=== PATIENT | male | born 1965 | race Caucasian/White ===

== ENCOUNTER → 2017-07-17 | Outpatient (REF) ==
[~2017-07-17] MED LIST: COZAAR100 MG PO
== END ==
LOC: WSOH 11:23
DX: Z00.00 Encounter for general adult medical examination without abnormal findings (principal)

== ENCOUNTER 2020-04-29 07:39 | Day surgery (SDC) | payer BC ==
[~2020-04-29] VITALS: Ht 177.8 cm; Wt 80.0 kg
[2020-04-29 08:00] VITALS: BP 142/82; PULSE 77; TEMP 98.5
[2020-04-29 09:35] VITALS: BP 119/75; PULSE 70; TEMP 97.7
--- NOTE | 2020-04-29 09:35 | NUR ---
Patient brought back to [facility] [place] [facility] via [place]. Placed on monitors, vital signs stable. Denies nausea or pain. States he would like a muffin and coffee. Report recieved from Mayela LEÓN. to be called to pick patient up. Warm blanket provided. Will continue to monitor.
[2020-04-29 09:50] VITALS: BP 130/76; PULSE 68
--- NOTE | 2020-04-29 09:50 | NUR ---
Patient tolerating food and drink without difficulty. States he would like more coffee. Will continue to monitor.
[2020-04-29 10:05] VITALS: BP 120/58; PULSE 82
--- NOTE | 2020-04-29 10:05 | NUR ---
Patient states he feels ready to go home at this time. IV removed, intact. called to come pick patient up. Patient to get dressed at this time. Will continue to monitor.
--- NOTE | 2020-04-29 10:35 | NUR ---
Discharge instructions reviewed with patient, all questions answered. Patient brought down to lobby via wheel chair. met at front door to drive patient home.
== END 2020-04-29 10:35 | disposition home or self-care (01) ==
LOC: SDCO 07:39
DX: Z12.11 Encounter for screening for malignant neoplasm of colon (principal); I10 Essential (primary) hypertension; D64.9 Anemia, unspecified; F10.20 Alcohol dependence, uncomplicated; D72.819 Decreased white blood cell count, unspecified; H90.3 Sensorineural hearing loss, bilateral; F17.220 Nicotine dependence, chewing tobacco, uncomplicated; Z88.8 Allergy status to other drugs, medicaments and biological substances; Z86.010 Personal history of colon polyps
CPT/HCPCS: J2704; J3010; J7120

== ENCOUNTER 2021-08-01 21:06 | Emergency (ER) | payer BC ==
[~2021-08-01] VITALS: Ht 177.8 cm; Wt 86.4 kg
[2021-08-01 21:20] VITALS: TEMP 98.1
[2021-08-01 21:51] LABS: BASO % 0.2 % (0.0-2.0); EOS % 0.2 % (0-4.0); GRAN # 3.4 (1.4-6.5); GRAN % 77.5 % (42.2-75.2); HEMOGLOBIN 13.4 g/dl (13.5-18.0); LYMPH # 0.3 (1.2-3.4); LYMPH % 7.2 % (20.0-51.0); MEAN CELL VOLUME 89 fl (80.0-100.0); MEAN CORPUSCULAR HEMOGLOBIN 32 pg (27.0-31.0); MEAN CORPUSCULAR HGB CONC 36 g/dl (33.0-37.0); MEAN PLATELET VOLUME 8.8 fl (7.4-10.4); MONO # 0.6 (0.1-0.6); PLATELET COUNT 155 K/mm3 (130-400); RED BLOOD COUNT 4.14 M/mm3 (4.20-5.60); REDCELL DISTRIBUTION WIDTH-CV 12.3 % (11.5-14.5)
[2021-08-01 21:59] LABS: INR 1.1 (0.8-3.0); PROTHROMBIN TIME 11.9 SECONDS (9.7-12.8)
[2021-08-01 22:03] LABS: ALANINE AMINOTRANSFERASE 27 U/L (4-49); ALKALINE PHOSPHATASE 61 U/L (50-136); ANION GAP 8 mmol/L (7-16); AST,SGOT 38 U/L (15-37); BILIRUBIN,TOTAL 0.6 mg/dL (0.0-1.0); BLOOD UREA NITROGEN 4 mg/dL (9-20); CALCIUM 8.3 mg/dL (8.4-10.2); CARBON DIOXIDE 22 mmol/L (22-30); CREATININE, serum 0.44 (0.66-1.25); GLUCOSE 93 mg/dL (74-106); POTASSIUM 3.9 mmol/L (3.4-5.0); TOTAL PROTEIN 6.3 gm/dL (6.4-8.2)
[2021-08-01 22:06] LABS: ALCOHOL(ethanol),MEDICAL < 10 mg/dL; CHLORIDE 85 mmol/L (98-107); SALICYLATE < 1.0 mg/dL; SODIUM 116 mmol/L (137-145)
[2021-08-01 22:20] LABS: TROPONIN-I < 0.012 ng/mL (0.000-0.035)
[2021-08-01 23:27] LABS: COLLECTION METHOD CLEAN CATCH
[2021-08-01 23:33] LABS: PH 7 (5-8); SQUAMOUS EPITHELIAL 0-2 /hpf; URINE APPEARANCE Clear; URINE BACTERIA None Seen /hpf; URINE BILIRUBIN Negative (NEGATIVE); URINE BLOOD Negative (NEGATIVE); URINE COLOR Straw; URINE GLUCOSE Negative (NEGATIVE); URINE KETONE 1+ (NEGATIVE); URINE LEUKOCYTE ESTERASE Negative (NEGATIVE); URINE NITRATE Negative (NEGATIVE); URINE PROTEIN(semi-quant) Negative (NEGATIVE); URINE RBC 0-2 /hpf; URINE UROBILINOGEN Negative (NEGATIVE)
[2021-08-02 00:15] VITALS: BP 177/68; PULSE 103
== END 2021-08-02 00:15 | disposition short-term general hospital (02) ==
LOC: COL.ER 21:06
PROVIDERS: Student in an Organized Health Care Education/Training Program
DX: U07.1 COVID-19 (principal); G93.89 Other specified disorders of brain; E87.1 Hypo-osmolality and hyponatremia; R56.9 Unspecified convulsions; I10 Essential (primary) hypertension; F17.210 Nicotine dependence, cigarettes, uncomplicated; Z79.899 Other long term (current) drug therapy
CPT/HCPCS: J2060; J2405; J7030

== ENCOUNTER → 2022-07-24 | Outpatient (CLI) | payer BC | LOC: COL.RAD 08:56 | DX: D42.0 Neoplasm of uncertain behavior of cerebral meninges (principal); Z98.890 Other specified postprocedural states | CPT/HCPCS: A9575 ==

== ENCOUNTER 2024-06-06 16:53 | Emergency (ER) | payer BC ==
[~2024-06-06] VITALS: Ht 180.3 cm; Wt 76.4 kg
[2024-06-06 16:56] VITALS: TEMP 98.9
[2024-06-06 17:56] LABS: MEAN CELL VOLUME 85 fl (80.0-100.0); MEAN CORPUSCULAR HGB CONC 33 g/dl (33.0-37.0); MEAN PLATELET VOLUME 9.5 fl (7.4-10.4); PLATELET COUNT 140 K/mm3 (130-400); RED BLOOD COUNT 2.52 M/mm3 (4.20-5.60); REDCELL DISTRIBUTION WIDTH-CV 12.7 % (11.5-14.5)
[2024-06-06 18:01] LABS: HEMATOCRIT 21.4 % (42.0-52.0); HEMOGLOBIN 7.1 g/dl (13.5-18.0); MEAN CORPUSCULAR HEMOGLOBIN 28 pg (27-31)
[2024-06-06 18:25] LABS: ALBUMIN 2.8 g/dL (3.5-5.0); BILIRUBIN,TOTAL 0.3 mg/dL (0.2-1.2); CALCIUM 9.2 mg/dL (8.4-10.2); CREATININE, serum 0.67 mg/dL (0.72-1.25); POTASSIUM 4.7 mEq/L (3.5-4.5)
[2024-06-06 18:41] LABS: LYMPHOCYTE 10 % (20.0-51.0); NEUTROPHILS 74 % (42.0-75.2)
[2024-06-06 18:42] LABS: ANISOCYTOSIS 1+; MICROCYTOSIS 1+; PLATELET ESTIMATE NORMAL (NORMAL)
[2024-06-06] MEDS ORDERED: levETIRAcetam 1,000 MG in Syringe 1 EACH IV ONE (21:00)
[2024-06-06 21:40] LABS: MAGNESIUM 1.6 mg/dL (1.6-2.6)
[2024-06-06 21:41] LABS: COLLECTION METHOD CLEAN CATCH
[2024-06-06 21:50] LABS: PH 7.5 (5.0-8.5); URINE APPEARANCE CLEAR (CLEAR/HAZY); URINE BLOOD NEGATIVE (NEGATIVE); URINE COLOR YELLOW (YELLOW); URINE GLUCOSE NEGATIVE (NEGATIVE); URINE KETONE NEGATIVE (NEGATIVE); URINE NITRATE NEGATIVE (NEGATIVE); URINE PROTEIN(semi-quant) 2+ (NEGATIVE); URINE UROBILINOGEN 0.2 E.U/dL (0.2-1.0)
[2024-06-06 23:39] VITALS: BP 138/70; PULSE 88
== END 2024-06-06 23:42 | disposition short-term general hospital (02) ==
LOC: COL.ER 16:53
PROVIDERS: Emergency Medicine
DX: R56.9 Unspecified convulsions (principal)
CPT/HCPCS: J1953

== ENCOUNTER 2024-07-11 19:32 | Emergency (ER) | payer BC ==
[~2024-07-11] VITALS: Ht 177.8 cm; Wt 77.3 kg
[~2024-07-11 19:32] MED LIST changes: +ALDACTONE50 MG PO; +B-12 500 MCG PO; +BYSTOLIC10 MG PO; +COREG 25MG25 MG/TAB PO; +FLEXERIL 1010 MG/TAB PO; +KEPPRA750 MG PO; +LASIX 40MG TABL40 MG PO; +LIORESAL 1010 MG/TAB PO; +MIRALAX PA17 GM/Dose PO; +NATURAL E400 IU PO; +NICODERM C14 MG/PATC TD; +NOXAFILTAB PO; +PREDFORTE5ML; +SENOKOT8.6 MG PO; +ZOFRAN8 MG PO; +ZOVIRAX800 MG PO
[2024-07-11] MEDS ORDERED: Acetaminophen 500 MG TAB PO ONE (21:00)
[2024-07-11] MEDS ORDERED: Cefepime 2 G in Water For Injection,Sterile 20 ML IV ONE (21:15)
[2024-07-11 21:33] LABS: MEAN CELL VOLUME 86 fl (80.0-100.0); MEAN CORPUSCULAR HGB CONC 35 g/dl (33.0-37.0); MEAN PLATELET VOLUME 9.3 fl (7.4-10.4); REDCELL DISTRIBUTION WIDTH-CV 13.9 % (11.5-14.5)
[2024-07-11 21:36] LABS: HEMATOCRIT 23.1 % (42.0-52.0); HEMOGLOBIN 8.1 g/dl (13.5-18.0); MEAN CORPUSCULAR HEMOGLOBIN 30 pg (27-31); PLATELET COUNT 14 K/mm3 (130-400)
[2024-07-11 22:13] LABS: ALBUMIN 2.8 g/dL (3.5-5.0); BILIRUBIN,TOTAL 0.5 mg/dL (0.2-1.2); CREATININE, serum 0.55 mg/dL (0.72-1.25); POTASSIUM 3.8 mEq/L (3.5-4.5); TOTAL PROTEIN 4.7 g/dl (6.2-8.1)
[2024-07-11 22:14] LABS: BAND 5 % (0-10); EOSINOPHIL 5 % (0-4); LYMPHOCYTE 35 % (20.0-51.0); NEUTROPHILS 50 % (42.0-75.2); PLATELET ESTIMATE DECREASED (NORMAL)
[2024-07-11 22:15] LABS: ANISOCYTOSIS 1+; HYPOCHROMIA 1+; POLYCHROMASIA 1+
[2024-07-12 01:27] LABS: COLLECTION METHOD CLEAN CATCH
[2024-07-12 01:36] LABS: PH 6.5 (5.0-8.5); URINE APPEARANCE CLEAR (CLEAR/HAZY); URINE BLOOD NEGATIVE (NEGATIVE); URINE COLOR YELLOW (YELLOW); URINE GLUCOSE NEGATIVE (NEGATIVE); URINE KETONE NEGATIVE (NEGATIVE); URINE NITRATE NEGATIVE (NEGATIVE); URINE PROTEIN(semi-quant) TRACE (NEGATIVE); URINE UROBILINOGEN 0.2 E.U/dL (0.2-1.0)
[2024-07-12 02:40] VITALS: BP 121/67; PULSE 84; TEMP 101.5
== END 2024-07-12 02:40 | disposition short-term general hospital (02) ==
LOC: COL.ER 19:32
PROVIDERS: Emergency Medicine
DX: D70.9 Neutropenia, unspecified (principal); R50.81 Fever presenting with conditions classified elsewhere; C92.00 Acute myeloblastic leukemia, not having achieved remission; D69.6 Thrombocytopenia, unspecified; Z87.891 Personal history of nicotine dependence
CPT/HCPCS: J0692

== ENCOUNTER 2024-07-30 20:10 | Emergency (ER) | payer BC ==
[2024-07-30 20:11] VITALS: TEMP 96.1
[2024-07-30] MEDS ORDERED: Midazolam 100 ML IV ONE (20:30)
[2024-07-30] MEDS ORDERED: levETIRAcetam 1,000 MG in Syringe 1 EACH IV ONE (20:30)
[2024-07-30] MEDS ORDERED: Midazolam 2 MG/2 ML VIAL IV ONE ×2 (20:45→21:15)
[2024-07-30 20:50] LABS: MEAN CELL VOLUME 91 fl (80.0-100.0); MEAN CORPUSCULAR HGB CONC 33 g/dl (33.0-37.0); MEAN PLATELET VOLUME 9.3 fl (7.4-10.4); RED BLOOD COUNT 2.65 M/mm3 (4.20-5.60); REDCELL DISTRIBUTION WIDTH-CV 13.3 % (11.5-14.5)
[2024-07-30 20:52] LABS: ALBUMIN 3.3 g/dL (3.5-5.0); BILIRUBIN,TOTAL 0.5 mg/dL (0.2-1.2); C-REACTIVE PROTEIN 0.63 mg/dL (0.00-0.50); CALCIUM 8.6 mg/dL (8.4-10.2); CREATININE, serum 0.76 mg/dL (0.72-1.25); TOTAL PROTEIN 5.8 g/dl (6.2-8.1)
[2024-07-30 20:55] LABS: MEAN CORPUSCULAR HEMOGLOBIN 30 pg (27-31); PLATELET COUNT 31 K/mm3 (130-400)
[2024-07-30 20:57] LABS: TROPONIN-I 0.017 ng/mL (0.00-0.033)
[2024-07-30 20:58] LABS: INR 1.1 (0.8-3.0); PROTHROMBIN TIME 11.5 SECONDS (9.7-12.8)
[2024-07-30 21:34] LABS: LYMPHOCYTE 76 % (20.0-51.0); NEUTROPHILS 22 % (42.0-75.2)
[2024-07-30 21:36] LABS: ANISOCYTOSIS 1+
[2024-07-30 21:37] LABS: POLYCHROMASIA 1+
[2024-07-30 21:56] LABS: PROLACTIN 106.2 ng/mL (3.46-19.40)
[2024-07-30 22:28] VITALS: BP 132/79
[2024-07-30 22:40] VITALS: PULSE 63
== END 2024-07-30 22:40 | disposition short-term general hospital (02) ==
LOC: COL.ER 20:10
PROVIDERS: Emergency Medicine
DX: G40.909 Epilepsy, unspecified, not intractable, without status epilepticus (principal); I46.9 Cardiac arrest, cause unspecified; D61.818 Other pancytopenia; C92.00 Acute myeloblastic leukemia, not having achieved remission; Z85.841 Personal history of malignant neoplasm of brain
CPT/HCPCS: J1953; J2250; J2251

== ENCOUNTER 2024-08-11 09:00 | Outpatient (RCR) | payer BC ==
[2024-08-06 12:16] VITALS: BP 126/6; PULSE 66; TEMP 97.5
[2024-08-06 12:51] LABS: MEAN CELL VOLUME 88 fl (80.0-100.0); MEAN CORPUSCULAR HGB CONC 35 g/dl (33.0-37.0); MEAN PLATELET VOLUME 10.4 fl (7.4-10.4); RED BLOOD COUNT 3.01 M/mm3 (4.20-5.60); REDCELL DISTRIBUTION WIDTH-CV 13.7 % (11.5-14.5)
[2024-08-06 12:58] LABS: ALBUMIN 3.5 g/dL (3.5-5.0); BILIRUBIN,TOTAL 0.5 mg/dL (0.2-1.2); CALCIUM 9.4 mg/dL (8.4-10.2); CREATININE, serum 0.7 mg/dL (0.72-1.25); MAGNESIUM 2.1 mg/dL (1.6-2.6); POTASSIUM 4.3 mEq/L (3.5-4.5)
[2024-08-06 13:50] LABS: HEMATOCRIT 26.4 % (42.0-52.0); HEMOGLOBIN 9.2 g/dl (13.5-18.0); MEAN CORPUSCULAR HEMOGLOBIN 31 pg (27-31); PLATELET COUNT 42 K/mm3 (130-400)
[2024-08-06 13:52] LABS: LYMPHOCYTE 38 % (20.0-51.0); NEUTROPHILS 39 % (42.0-75.2); PLATELET ESTIMATE DECREASED (NORMAL)
[2024-08-08 11:14] VITALS: BP 109/65; PULSE 61; TEMP 98.1
[2024-08-08 11:27] LABS: MEAN CELL VOLUME 86 fl (80.0-100.0); MEAN CORPUSCULAR HGB CONC 36 g/dl (33.0-37.0); MEAN PLATELET VOLUME 9.4 fl (7.4-10.4); RED BLOOD COUNT 2.86 M/mm3 (4.20-5.60); REDCELL DISTRIBUTION WIDTH-CV 13.6 % (11.5-14.5)
[2024-08-08 11:42] LABS: ALBUMIN 3.5 g/dL (3.5-5.0); BILIRUBIN,TOTAL 0.5 mg/dL (0.2-1.2); CALCIUM 9.2 mg/dL (8.4-10.2); CREATININE, serum 0.72 mg/dL (0.72-1.25); MAGNESIUM 2.2 mg/dL (1.6-2.6); POTASSIUM 4.3 mEq/L (3.5-4.5); TOTAL PROTEIN 5.9 g/dl (6.2-8.1)
[2024-08-08 11:45] LABS: HEMATOCRIT 24.5 % (42.0-52.0); HEMOGLOBIN 8.8 g/dl (13.5-18.0); MEAN CORPUSCULAR HEMOGLOBIN 31 pg (27-31); PLATELET COUNT 35 K/mm3 (130-400)
[2024-08-08 13:29] LABS: LYMPHOCYTE 43 % (20.0-51.0); NEUTROPHILS 39 % (42.0-75.2)
[2024-08-08 13:31] LABS: PLATELET ESTIMATE DECREASED (NORMAL)
[~2024-08-11] VITALS: Ht 177.8 cm; Wt 77.7 kg
[~2024-08-11 09:00] MED LIST changes: +ENTRESTO 24 MG1 EACH PO; +KEPPRA1000 MG PO; -KEPPRA750 MG PO; +NS Flush 10 ML SYRINGE (Power PICC Line - 10 mL PRN) ICA; +NS Flush 10 ML SYRINGE (Power PICC Line - 10 mL Q12hr) ICA SCH; +SENNA-S 50 MG-81 TAB PO; +SODIUM FLUORID100 ML DT; +VANTIN 200200 MG/TAB
[2024-08-11 09:34] LABS: MEAN CELL VOLUME 89 fl (80.0-100.0); MEAN CORPUSCULAR HGB CONC 35 g/dl (33.0-37.0); MEAN PLATELET VOLUME 9.7 fl (7.4-10.4); RED BLOOD COUNT 2.75 M/mm3 (4.20-5.60); REDCELL DISTRIBUTION WIDTH-CV 14.6 % (11.5-14.5)
[2024-08-11 09:36] LABS: HEMATOCRIT 24.5 % (42.0-52.0); HEMOGLOBIN 8.5 g/dl (13.5-18.0); MEAN CORPUSCULAR HEMOGLOBIN 31 pg (27-31)
[2024-08-11 09:37] LABS: PLATELET COUNT 30 K/mm3 (130-400)
[2024-08-11 10:03] LABS: ALBUMIN 3.6 g/dL (3.5-5.0); BILIRUBIN,TOTAL 0.4 mg/dL (0.2-1.2); CALCIUM 9.4 mg/dL (8.4-10.2); CREATININE, serum 0.66 mg/dL (0.72-1.25); MAGNESIUM 2.1 mg/dL (1.6-2.6); POTASSIUM 4.1 mEq/L (3.5-4.5)
[2024-08-11 10:06] VITALS: BP 116/67; PULSE 58; TEMP 97.8
[2024-08-11 10:14] LABS: BAND 1 % (0-10); BASOPHIL 1 % (0-2); EOSINOPHIL 1 % (0-4); LYMPHOCYTE 35 % (20.0-51.0); NEUTROPHILS 56 % (42.0-75.2); PLATELET ESTIMATE DECREASED (NORMAL)
== END 2024-08-11 17:10 | disposition still patient (30) ==
LOC: EUO 09:00
PROVIDERS: Internal Medicine
DX: C92.01 Acute myeloblastic leukemia, in remission (principal)